=== PATIENT | male | born 2000 | race Caucasian/White ===

== ENCOUNTER 2020-03-09 13:57 | Outpatient (CLI) | payer OTHER ==
[2020-03-10] MEDS ORDERED: MULT-257 PO (09:57)
== END 2020-03-09 23:59 | disposition home or self-care (01) ==
LOC: STAR 13:57
PROVIDERS: ATTEND Anesthesiology
DX: Z02.9 Encounter for administrative examinations, unspecified (principal)

== ENCOUNTER 2020-03-12 07:23 | Day surgery (SDC) | payer OTHER ==
[~2020-03-12] VITALS: Ht 167.6 cm; Wt 114.2 kg
[~2020-03-12 07:23] MED LIST: BUPIVACAINE/PF-EPI 0.5% 1:200K ONE; LIDOCAINE/PF 1%-EPI 1:200K, 30 ML ONE; MULT-257 PO
[2020-03-12] MEDS ORDERED: FENTANYL PF 100 MCG/2ML ONE ×2 (07:38→10:55)
[2020-03-12] MEDS ORDERED: MIDAZOLAM 1 MG/ML, 2ML ONE ×2 (07:38→08:40)
[2020-03-12 07:47] VITALS: BP 134/82
[2020-03-12] MEDS ORDERED: LACTATED RINGERS 1,000 ML IV SCH (07:50)
[2020-03-12] MEDS ORDERED: CHLORHEXIDINE 15 ML UDC ONE (07:55)
[2020-03-12] MEDS ORDERED: CHLORHEXIDINE 15 ML UDC MM ONE (08:00)
[2020-03-12] MEDS ORDERED: KETOROLAC 30 MG/1 ML ONE (09:05)
[2020-03-12] MEDS ORDERED: FENTANYL PF 250 MCG/5ML ONE (09:05)
[2020-03-12] MEDS ORDERED: HYDROmorphone 2 MG/ML, 1ML IVPush PRN (09:30)
[2020-03-12] MEDS ORDERED: DIAZEPAM 5 MG/ML, 2ML IVPush PRN (09:30)
[2020-03-12] MEDS ORDERED: KETOROLAC 30 MG/1 ML IV PRN (09:30)
[2020-03-12] MEDS ORDERED: ALBUTEROL SULFATE 2.5 MG/3 ML NPPB PRN (09:30)
[2020-03-12] MEDS ORDERED: PROMETHAZINE 25 MG/ML, 1ML IV PRN (09:30)
[2020-03-12] MEDS ORDERED: hydrALAzine 20 MG/ML, 1ML IV PRN (09:30)
[2020-03-12] MEDS ORDERED: ACETAMINOPHEN 325 MG TABLET PO PRN (09:30)
[2020-03-12] MEDS ORDERED: OXYcodone 5 MG/5 ML ORAL.SOL UDC PO PRN (09:30)
[2020-03-12] MEDS ORDERED: MEPERIDINE/PF 25MG/0.5ML IVPush PRN (09:30)
[2020-03-12] MEDS ORDERED: LABETALOL 5MG/ML, 20ML IV PRN (09:30)
[2020-03-12] MEDS ORDERED: BUPIVACAINE/PF-EPI 0.5% 1:200K INFIL ONE (09:31)
[2020-03-12] MEDS ORDERED: LIDOCAINE 1%-EPI 1:100K, 30ML INFIL ONE (09:31)
[2020-03-12] MEDS ORDERED: NEOSTIGMINE 1 MG/ML, 10ML ONE (09:37)
[2020-03-12] MEDS ORDERED: CEFAZOLIN 1,000 MG ONE (09:37)
[2020-03-12] MEDS ORDERED: DEXAMETHASONE 4 MG/ML, 1ML ONE (09:37)
[2020-03-12] MEDS ORDERED: ONDANSETRON 2MG/ML, 2ML ONE (09:37)
[2020-03-12] MEDS ORDERED: ROCURONIUM 10MG/ML,5ML ONE (09:37)
[2020-03-12] MEDS ORDERED: SUCCINYLCHOLINE 20 MG/ML, 10ML ONE (09:37)
[2020-03-12] MEDS ORDERED: GLYCOPYRROLATE 0.2MG/1ML, 5ML ONE (09:37)
[2020-03-12] MEDS ORDERED: PROPOFOL 10 MG/ML, 20ML ONE (09:37)
[2020-03-12] MEDS ORDERED: ACETAMINOPHEN 650 MG/20.3 ML UDC ONE (10:55)
[2020-03-12] MEDS ORDERED: OXYcodone 5 MG/5 ML ORAL.SOL UDC ONE (10:56)
[2020-03-12] MEDS ORDERED: MEPERIDINE/PF 25MG/ML,1ML ONE (10:56)
[2020-03-12] MEDS: FENTANYL PF 100 MCG/2ML IV PRN ×2 (11:05→11:19)
== END 2020-03-12 12:55 | disposition home or self-care (01) ==
LOC: OUT 07:23
PROVIDERS: ATTEND Orthopaedic Surgery
DX: M22.01 Recurrent dislocation of patella, right knee (principal); Z11.59 Encounter for screening for other viral diseases; M22.8X1 Other disorders of patella, right knee; M22.41 Chondromalacia patellae, right knee; E66.9 Obesity, unspecified; Z82.3 Family history of stroke
CPT/HCPCS: 27427; 29873; 36415; 64447; 73560; 76000; 87635; C1713; C1762; J0330; J0690; J1100; J1885; J2175; J2250; J2405; J2704; J2710; J3010; J3490; J7120

== ENCOUNTER 2020-03-19 17:49 | Emergency (ER) | payer OTHER ==
[~2020-03-19] VITALS: Ht 167.6 cm; Wt 110.0 kg
[~2020-03-19 17:49] MED LIST changes: -BUPIVACAINE/PF-EPI 0.5% 1:200K ONE; -LIDOCAINE/PF 1%-EPI 1:200K, 30 ML ONE
[2020-03-19 17:59] VITALS: BP 142/97
[2020-03-19] MEDS ORDERED: ONDANSETRON ODT 4 MG ONE (18:06)
--- NOTE | 2020-03-19 18:08 | NUR ---
ANTONIA GIVEN ODT PER PROTOCOL FOR N/V. PT BACK TO [facility].
--- NOTE | 2020-03-19 18:12 | NUR ---
RENT COLLECTOR: PER , PT LEFT
[2020-03-19] MEDS ORDERED: ONDANSETRON ODT 4 MG PO ONE (18:30)
== END 2020-03-19 18:14 | disposition left against medical advice (07) ==
LOC: ED 18:00
DX: R51 Headache (principal); Z53.21 Procedure and treatment not carried out due to patient leaving prior to being seen by health care provider
CPT/HCPCS: 99283; Q0162